=== PATIENT | female | born 1970 | race Caucasian/White ===

== ENCOUNTER 2019-01-24 08:30 | Outpatient (RCR) | payer MEDICAID, SELFPAY | END 2019-01-24 08:35 | disposition home or self-care (01) | LOC: PT 08:30 | PROVIDERS: Referring Provider Nurse Practitioner Family; Visit Provider Nurse Practitioner Family | DX: T25.221A Burn of second degree of right foot, initial encounter (principal); T25.222A Burn of second degree of left foot, initial encounter | CPT/HCPCS: 29580; 97163; 97164; 97597; 97598 ==

== ENCOUNTER 2020-01-01 10:00 | Outpatient (RCR) | payer MEDICAID, SELFPAY | END 2020-01-22 08:11 | disposition home or self-care (01) | LOC: PT.CARL 10:00 | PROVIDERS: Visit Provider Orthopaedic Surgery | DX: Z89.511 Acquired absence of right leg below knee (principal) | CPT/HCPCS: 97110; 97112; 97116; 97163; 97164 ==

== ENCOUNTER → 2021-01-13 10:13 | Outpatient (CLI) | payer MEDICAID, SELFPAY ==
--- NOTE | 2021-01-13 | ECG_ITS ---
APPROVED REPORT Exam: Resting ECG HR:84 bpm ECG Measurements Heart Rate 84 AXES ID 158 P 32 QRSd 122 QRS -72 QT 402 T 67 QTc 475 Conclusion Sinus rhythm with occasional premature ventricular complexes Left anterior fascicular block Late R wave progression Abnormal ECG Electronically signed by : Nitin Fernández MD 01/16/2021 11:41:29
[2021-01-13 10:54] LABS: Basophils # 0.1 K/mm3 (0-0.2); Basophils % 0.9 % (0.1-2.0); Eosinophils # 0.1 K/mm3 (0.0-0.4); Eosinophils % 1.1 % (0.1-12.0); Hematocrit 40.9 % (37.0-47.0); Hemoglobin 13.8 g/dL (12.2-16.2); Lymphocytes # 2.9 K/mm3 (0.7-4.5); Lymphocytes % 33.7 % (10-50); Mean Corpuscular HGB Conc 33.8 g/dL (31.8-35.4); Mean Corpuscular Hemoglobin 28.3 pg (27.0-31.2); Mean Corpuscular Volume 83.7 fl (81-99); Mean Platelet Volume 8.5 fl (7.4-10.4); Monocytes # 0.4 K/mm3 (0.1-1.0); Neutrophils # 5.1 K/mm3 (1.8-7.8); Neutrophils % 59.3 % (37.0-80.0); Platelet Count 167 K/mm3 (142-424); Red Blood Count 4.89 M/mm3 (4.20-5.40); Red Cell Distribution Width 15.1 % (11.5-17.5); White Blood Count 8.7 K/mm3 (4.8-10.8)
== END ==
PROVIDERS: Visit Provider Otolaryngology
DX: Z01.818 Encounter for other preprocedural examination (principal); Z11.52 Encounter for screening for COVID-19; H60.8X2 Other otitis externa, left ear
CPT/HCPCS: 36415; 85025; 93005; U0003

== ENCOUNTER 2021-01-15 08:10 | Day surgery (SDC) | payer MEDICAID, SELFPAY ==
[2021-01-12 17:15] VITALS: BMI 49.1
[2021-01-15] VITALS (13 sets, daily range): BP systolic 129–187; BP diastolic 74–100; PULSE 74–95; RESP 15–18; TEMP 36.1–36.6; O2SAT 94–97
--- NOTE | 2021-01-15 08:46 | P.PN_ITS ---
[facility] Anesthesia Checklist - Patient Identification Patient Identification: Arm Band - Structural Data Admitted From: Home Planned Operative Procedure/s: Debridement with Ear tube Consent for Planned Operative Procedure(s) Verified: Yes - NPO Status Verified Time NPO: 00:00 - Airway Assessment C-Spine Mobility Assessed: Yes TMJ Mobility Assessed: Yes Dentition: Edentulous - Neurological Assessment Level of Consciousness: Awake Hx Seizures: No Numbness or tingling in extremities: No - Anesthesia Plan Anesthesia Risk discussed: Yes Anesthesia Plan: Verified ASA Class: III Anesthesia Type: MAC [facility] History I have reviewed the patient's past medical history: Yes Medical History: Reports:: Depression, Diabetes Mellitus Type 2, Hyperlipidemia, Hypertension Denies:: Cancer, Diabetes Mellitus Type 1, Internal Pacemaker, MRSA *Have you ever received a pneumonia vaccine?: No *Have you received a flu vaccine this season?: Yes Other Medical History: Reports: Sinus Problems Anesthesia experience/problems:: None Other Surgeries: Yes: Cardiac Catheterization, Dilation and Curettage, Hysterectomy-Total, Other. No: Pacemaker Amputation: Yes (right BKA) Fractures: No - *Social History Last grade of school completed: High school graduate Smoking Status: Never smoker Alcohol Intake: never Substance Use Type: denies use *Occupational Status:: unemployed, disabled Housing: house Household Members: none *Travel in the last 8 weeks: None - Psychiatric History Pschychiatric History:: Reports:: Depression Family Hx:: Hypertension
[2021-01-15 09:01] LABS: POC Glucose,Bedside 319 (70-110)
[2021-01-15 09:45] LABS: POC Glucose,Bedside 276 (70-110)
--- NOTE | 2021-01-15 10:31 | P.PN_ITS ---
[facility] Anesthesia Record Part I Intake, IV Amount: 300 Estimated blood loss (mL): 0 Urine output (mL): 0 Blood Pressure: 129/75 SaO2: 95 Pulse Rate: 88 Respiratory Rate: 16 Temperature: 97.5 F Patient is:: Drowsy, Stable Stable to PACU at:: 10:30
[2021-01-15 10:41] LABS: POC Glucose,Bedside 250 (70-110)
--- NOTE | 2021-01-15 10:50 | HMH.OPNOTE ---
Date of procedure: 01/15/21 Pre-op Diagnosis:: 1. Left external otitis with impacted debris in the left ear 2. Left serous otitis media Post-op Diagnosis:: same Procedure performed:: 1. Microdebridement of the left ear 2. Placement of left ear tube, left myringotomy and placement of tube Surgeon:: Ronaldo Reyes MD PRISON OFFICER:: Joseph Herr Anesthesia: GETA Estimated blood loss (mL): 0 Operative findings:: same Operative note:: With the patient under general anesthesia the left ear was prepped and draped. The left ear canal was full of debris and using microdebrider Cesar techniques and the operating microscope all of the debris was cleared. As well there was an impacted tube in the left ear and that was removed. The ear was thoroughly irrigated and then an incision was made in the anterior-inferior quadrant and a fresh Triune T-tube was placed. Serous fluid was aspirated from the left middle ear. Ciprodex drops were applied and the patient was sent to recovery in good general condition. Condition: stable Disposition: PACU Complications:: none
--- NOTE | 2021-01-15 11:52 | SUR.PHASEI ---
1035 FSBS 250. RFeeback, STOCKROOM CLERK aware. Pt to start own insulin back once at home. Post OP and pt notified.
--- NOTE | 2021-01-15 11:53 | SUR.PHASEI ---
1100: Pt reports headache and ear throbbing. BP elevated. Juliana Herr CRNA notified. Labetalol 10mg q5 min ordered by JOHN Bedolla. SBP below 170 and DBP below 100 per JOHN Bedolla. Pt was given Dilaudid 0.5mg at 1108am. After dilaudid, patient verbalized decreased pain in head and ear. BP stabilized as well. SBP 160s and DBP 70-80. Pt to Post OP.
--- NOTE | 2021-01-15 14:00 | P.PN_ITS ---
[facility] Anesthesia Record Part II Discharge Time: 11:22 Destination: Surgical Day Care (OP Surgery) PACU nurse assessment reviewed?: Yes Patient Condition:: Good Anesthesia Complications:: None Swallowing reflex intact?: Yes Cyanosis?: No Blood Pressure: 160/77 Pulse Rate: 88 Temperature: 97.3 F Mental Status: Alert & Oriented Pain level:: 6 Nausea and/or vomitting:: None Intake, IV Amount: 0
== END 2021-01-15 11:54 | disposition home or self-care (01) ==
LOC: OR 08:16
PROVIDERS: PCP Internal Medicine; Visit Provider Otolaryngology
PROC: (CPT 69436; principal; 2021-01-15 09:30)
DX: H83.02 Labyrinthitis, left ear (principal); H65.92 Unspecified nonsuppurative otitis media, left ear; E11.9 Type 2 diabetes mellitus without complications; E78.5 Hyperlipidemia, unspecified; I10 Essential (primary) hypertension; F32.9 Major depressive disorder, single episode, unspecified; Z82.49 Family history of ischemic heart disease and other diseases of the circulatory system; Z79.4 Long term (current) use of insulin; Z79.899 Other long term (current) drug therapy
CPT/HCPCS: 69436; 82962; J2405

== ENCOUNTER 2021-02-23 22:47 | Emergency (ER) | payer MEDICAID, SELFPAY ==
[2021-02-23 22:48] VITALS: BP 141/71; PULSE 98; RESP 18; TEMP 37.3; O2SAT 97; BMI 50.4
--- NOTE | 2021-02-23 23:49 | ECG_ITS ---
APPROVED REPORT Exam: Resting ECG HR:97 bpm ECG Measurements Heart Rate 97 AXES [place] 166 P 49 QRSd 120 QRS -70 QT 400 T 73 QTc 508 Conclusion Normal sinus rhythm Left anterior fascicular block Abnormal ECG Electronically signed by : Nitin Fernández MD 02/25/2021 07:29:33
--- NOTE | 2021-02-24 00:10 | XR_ITS ---
PROCEDURE INFORMATION: Exam: XR Chest Exam date and time: 02/24/2021 12:10 AM Age: 50 years old Clinical indication: Cough TECHNIQUE: Imaging protocol: XR of the chest. Views: 2 views. COMPARISON: No relevant prior studies available. FINDINGS: Lungs: Subtle interstitial haziness could reflect interstitial pneumonia. No consolidation. Pleural spaces: Unremarkable. No pleural effusion. No pneumothorax. Heart/Mediastinum: cardiomegaly. Bones/joints: Unremarkable. IMPRESSION: Subtle interstitial haziness could reflect interstitial pneumonia.
[2021-02-24 00:18] LABS: Influenza A, PCR Not Detected (NotDetected); Influenza B, PCR Not Detected (NotDetected)
[2021-02-24 00:22] LABS: Chloride 100 mmol/L (98-107); Potassium 4.4 mmoL/L (3.5-5.1); Sodium 137 mmol/L (136-145)
[2021-02-24 00:25] LABS: Alanine Aminotransferase 54 U/L (12-78); Albumin Level 3.9 g/dl (3.5-5.0); Alkaline Phosphatase 121 U/L (38-126); Anion Gap 12.4 mEq/L (5-15); Aspartate Amino Transferase 62 U/L (14-36); Bilirubin,Direct 0.1 mg/dl (0.0-0.4); Bilirubin,Indirect 0.4 mg/dL (0.0-0.9); Bilirubin,Total 0.5 mg/dl (0.2-1.3); Bilirubin,Unconjugated 0.4 mg/dL (0.0-1.1); Blood Urea Nitrogen 21 mg/dl (7-17); Carbon Dioxide 29 mmol/L (22.0-30.0); Creatinine Clearance Estimated 81 mL/min (50-200); Estimated Glomerular Filt Rate 88 ml/min (>60); GFR (African American) 106 ML/MIN (>60); Glucose 396 mg/dl (74-100); Total Protein,Serum 7.1 g/dl (6.3-8.2)
[2021-02-24 00:31] LABS: C-Reactive Protein 24.2 mg/L (0-4); Lactic Acid 2.1 mmol/L (0.7-2.1)
[2021-02-24 00:32] LABS: Basophils % 0.6 % (0.1-2.0); Eosinophils # 0.1 K/mm3 (0.0-0.4); Eosinophils % 1.1 % (0.1-12.0); Hematocrit 40.5 % (37.0-47.0); Hemoglobin 13.2 g/dL (12.2-16.2); Lymphocytes # 1.4 K/mm3 (0.7-4.5); Lymphocytes % 23.1 % (10-50); Mean Corpuscular HGB Conc 32.7 g/dL (31.8-35.4); Mean Corpuscular Volume 88.8 fl (81-99); Mean Platelet Volume 8.1 fl (7.4-10.4); Monocytes # 0.4 K/mm3 (0.1-1.0); Monocytes % 5.9 % (1.7-9.3); Neutrophils # 4.1 K/mm3 (1.8-7.8); Neutrophils % 69.4 % (37.0-80.0); Platelet Count 179 K/mm3 (142-424); Red Blood Count 4.55 M/mm3 (4.20-5.40); Red Cell Distribution Width 14.6 % (11.5-17.5); White Blood Count 5.9 K/mm3 (4.8-10.8)
[2021-02-24 00:37] LABS: NT Pro Brain Natriuretic Pep. 370 pg/mL (0-125)
[2021-02-24 00:39] LABS: Coronavirus 19, PCR Detected (NotDetected)
[2021-02-24 00:40] LABS: Troponin I < 0.01 ng/ml (0.00-0.034)
[2021-02-24 00:44] LABS: Procalcitonin 0.092 ng/mL (0.0-2.0)
[2021-02-24 01:21] LABS: Erythrocyte Sedimentation Rate 56 mm/hr (0-30)
--- NOTE | 2021-02-24 01:47 | CT_ITS ---
PROCEDURE INFORMATION: Exam: CTA Chest With Contrast Exam date and time: 02/24/2021 1:47 AM Age: 50 years old Clinical indication: Cough and shortness of breath; Additional info: Cough covid + TECHNIQUE: Imaging protocol: Computed tomographic angiography of the chest with contrast. 3D rendering (Not supervised by radiologist): MIP and/or 3D reconstructed images were created by the technologist. Radiation optimization: All CT scans at this facility use at least one of these dose optimization techniques: automated exposure control; mA and/or kV adjustment per patient size (includes targeted exams where dose is matched to clinical indication); or iterative reconstruction. Contrast material: ISOVUE 370; Contrast volume: 70 ml; Contrast route: INTRAVENOUS (IV); COMPARISON: CR XR CHEST 2V 02/24/2021 12:09 AM FINDINGS: Pulmonary arteries: No central, lobar, or segmental pulmonary embolus. There is mild artifactual heterogeneity of the subsegmental pulmonary arteries, without convincing filling defect. Aorta: Mild ectasia of the ascending thoracic aorta, measuring 3.6 cm in caliber. Other arteries: Incidental 0.8 cm splenic artery aneurysm. Lungs: Calcified granuloma in the left lower lobe. Mild dependent atelectasis. There is also subtle ground-glass attenuation in the bilateral perihilar regions, potentially atelectasis or atypical infection. No airspace consolidation. Pleural spaces: Unremarkable. No pneumothorax. No pleural effusion. Heart: Mild cardiomegaly. No pericardial effusion. Lymph nodes: Nonspecific right paratracheal/paraesophageal lymph nodes measuring up to 0.8 cm in short axis, probably reactive. Calcified subcarinal lymph nodes compatible with old granulomas disease. Liver: Liver is not fully visualized, but measures at least 17 cm in craniocaudal dimension, enlarged. Heterogeneous attenuation of the liver suggesting scattered geographic areas of steatosis. Spleen: There are a few calcified granulomas within the spleen. Bones/joints: Spondylosis. There is [id number] spinal canal stenosis at T11-T12 due disc bulging and left greater than right facet osteoarthropathy. There is advanced left neural foraminal stenosis at T11-T12. Less pronounced degenerative changes at other levels. Soft tissues: Unremarkable. IMPRESSION: 1. No evidence of pulmonary embolus. 2. Subtle bilateral perihilar ground-glass opacities may be due to atelectasis or atypical infection. No airspace consolidation. 3. Mild ectasia of the ascending thoracic aorta. 4. Incidental 0.8 cm splenic artery aneurysm, consider a 1 year follow-up. 5. Hepatomegaly with heterogeneous areas of steatosis.
--- NOTE | 2021-02-24 02:24 | HMH.EDURI ---
ED Disposition Clinical Impression: COVID-19 Disposition: Home, Self-Care Condition on Discharge: Good Instructions: DI for COVID-19 (Suspected or Confirmed ) Additional Instructions: fluids and call pcp for follow up Referrals: Milvia Bruno MD [Primary Care Provider] - - Critical Care Critical Care Time: No Attestation: On 02/23/21, the high probability of a clinically significant, sudden or life threatening deterioration of the following system(s) required my full and direct attention, intervention and personal management. The time I documented below is in addition to time spent performing reported procedures but includes the following listed in this critical care notation. Medical Decision Making - Medical Records Medical records reviewed: Yes: I reviewed the patient's medical records. - Kamaljit Inquiry Pt receiving controlled substance: No Vital Signs: 02/23/21 22:48 Temperature 99.1 F Temperature Source Oral Pulse Rate [Right Radial] 98 H Respiratory Rate 18 Blood Pressure [Right Arm] 141/71 H Blood Pressure Mean [Right Arm] 94 Blood Pressure Source [Right Arm] Automatic Cuff Blood Pressure Position [Right Arm] Sitting 02 Sat by Pulse Oximetry 97 Oxygen Delivery Method Room Air - Lab Data Lab results reviewed: Yes: I reviewed the patient's lab results. Lab Results 02/24/21 00:02: WBC 5.9, RBC 4.55, Hgb 13.2, Hct 40.5, MCV 88.8, MCH 29.0, MCHC 32.7, RDW 14.6, Plt Count 179, MPV 8.1, Neut % (Auto) 69.4, Lymph % (Auto) 23.1, [place] % (Auto) 5.9, Eos % (Auto) 1.1, Baso % (Auto) 0.6, Neut # (Auto) 4.1, Lymph # (Auto) 1.4, [place] # (Auto) 0.4, Eos # (Auto) 0.1, Baso # (Auto) 0.0, ESR 56 H 02/24/21 00:02: Sodium 137, Potassium 4.4, Chloride 100, Carbon Dioxide 29, Anion Gap 12.4, BUN 21 H, Creatinine 0.70, Estimated Creat Clear 81, Estimated GFR 88, Est GFR ( Amer) 106, Glucose 396 H, Calcium 9.0, Total Bilirubin 0.5, Direct Bilirubin 0.1, Conjugated Bilirubin 0.0, Indirect Bilirubin 0.4, Unconjugated Bilirubin 0.4, AST 62 H, ALT 54, Alkaline Phosphatase 121, Troponin I < 0.01, C-Reactive Protein 24.2 H, NT-Pro-B Natriuret Pep 370 H, Total Protein 7.1, Albumin 3.9, Procalcitonin 0.092 02/24/21 00:02: SARS-CoV-2 (PCR) Detected A, Influenza A Untype (PCR) Not detected, Influenza Type B (PCR) Not detected 02/24/21 00:02: Lactate 2.1 Result diagrams: 02/24/21 00:02 02/24/21 00:02 Orders (Tests/Meds): ED MEDICATIONS Generic Name Dose Route Start Last Admin Trade Name Freq PRN Reason Stop Dose Admin Sodium Chloride 1,000 mls @ 999 mls/hr 02/24/21 00:45 02/24/21 00:48 Sod Chlor 0.9% 1000ml Bag IV 02/24/21 01:45 999 mls/hr .Q1H1M JIMI Administration Discontinued Medications Generic Name Dose Route Start Last Admin Trade Name Freq PRN Reason Stop Dose Admin Dexamethasone Sodium Phosphate 10 mg 02/24/21 00:44 02/24/21 00:48 Dexamethasone 4mg/Ml 5ml Mdv IV 02/24/21 00:45 10 mg ONCE ONE Administration Iopamidol 70 ml 02/24/21 02:16 02/24/21 02:17 Iopamidol-370 (76%);100ml Bottle IV 02/24/21 02:17 70 ml ONCE ONE Administration Sodium Chloride 50 ml 02/24/21 02:16 02/24/21 02:17 0.9 % Sodium Chloride 50 Ml Vial IV 02/24/21 02:17 50 ml ONCE ONE Administration Sodium Chloride 10 ml 02/24/21 02:16 02/24/21 02:17 Sodium Chloride 0.9% 10ml Syr (Rad Only) IV 02/24/21 02:17 10 ml ONCE ONE Administration ORDERS Category Date Time Status Troponin I Q3H Lab 02/24/21 03:20 Received Troponin I Q3H Lab 02/24/21 06:15 Ordered Blood Culture Stat Micro 02/24/21 00:02 Received - Radiology Data #1 Image(s): Chest Image Reviewed: Yes I have reviewed radiologist's interpretation Preliminary Findings: Abnormal - CT Data CT Scan: Chest Time Received: 02:[address] Reviewed: Yes: I have viewed the radiologist's interpretation Preliminary Findings: Normal/NAD - ECG Data Tracing #1 Normal Sinus Rhythm: Yes Ischemic changes:
[2021-02-24 04:09] LABS: Troponin I < 0.01 ng/ml (0.00-0.034)
[2021-02-24 04:16] LABS: Reflex Lactic Add Lactic Reflex
[2021-02-24 04:25] VITALS: BP 146/86; PULSE 96; RESP 20; TEMP 36.6; O2SAT 95
== END 2021-02-24 04:25 | disposition home or self-care (01) ==
PROVIDERS: Emergency Provider Emergency Medicine; PCP Internal Medicine
DX: U07.1 COVID-19 (principal); I10 Essential (primary) hypertension; E78.5 Hyperlipidemia, unspecified
CPT/HCPCS: 71046; 71275; 80048; 80076; 83605; 83880; 84145; 84484; 85025; 85651; 86140; 87040; 93005; 96365; 96375; 99284; C9803; Q9967; U0003; U0005

== ENCOUNTER 2021-02-24 14:13 | Outpatient (CLI) | payer MEDICAID, SELFPAY ==
[2021-02-24] VITALS (9 sets, daily range): BP systolic 120–145; BP diastolic 67–78; PULSE 88–99; RESP 16–18; TEMP 36.4–36.6; O2SAT 94–98
== END 2021-02-24 15:00 | disposition home or self-care (01) ==
LOC: COVID.OUT 14:13
PROVIDERS: PCP Emergency Medicine; Visit Provider Emergency Medicine
DX: U07.1 COVID-19 (principal)
CPT/HCPCS: 96365

== ENCOUNTER 2023-10-14 10:07 | Outpatient (CLI) | payer MEDICARE, MEDICAID, SELFPAY ==
--- NOTE | 2023-10-14 10:13 | XR_ITS ---
FINAL REPORT CLINICAL HISTORY: L knee pain COMPARISON: None FINDINGS: LEFT KNEE: 3 images of the left knee were obtained. There is no evidence of fracture or dislocation. Mild degenerative change is present. There is no soft tissue abnormality identified. IMPRESSION: No acute bony abnormality. Mild degenerative change. Reviewed, Interpreted and Dictated by Adriana Bajwa MD Transcribed by Mahsa aLura Authenticated and [facility]
[2023-10-14 18:34] LABS: Basophils # 0.1 K/mm3 (0-0.2); Basophils % 0.8 % (0.1-2.0); Eosinophils # 0.1 K/mm3 (0.0-0.4); Eosinophils % 1.1 % (0.1-12.0); Hematocrit 33.8 % (37.0-47.0); Hemoglobin 11.1 g/dL (12.2-16.2); Lymphocytes # 2.5 K/mm3 (0.7-4.5); Mean Corpuscular HGB Conc 32.7 g/dL (31.8-35.4); Mean Corpuscular Hemoglobin 29.1 pg (27.0-31.2); Mean Corpuscular Volume 88.8 fl (81-99); Mean Platelet Volume 10.2 fl (7.4-10.4); Monocytes # 0.4 K/mm3 (0.1-1.0); Monocytes % 7.1 % (1.7-9.3); Neutrophils # 2.9 K/mm3 (1.8-7.8); Platelet Count 233 K/mm3 (142-424); Red Blood Count 3.81 M/mm3 (4.20-5.40); Red Cell Distribution Width 16.5 % (11.5-17.5); White Blood Count 5.9 K/mm3 (4.8-10.8)
[2023-10-14 18:53] LABS: Alanine Aminotransferase 28 U/L (12-78); Albumin Level 4.1 g/dl (3.5-5.0); Albumin/Globulin Ratio 1.5 (1.1-1.8); Alkaline Phosphatase 96 U/L (38-126); Anion Gap 10.5 mEq/L (5-15); Aspartate Amino Transferase 30 U/L (14-36); Bilirubin,Total 0.5 mg/dl (0.2-1.3); Blood Urea Nitrogen 39 mg/dl (7-17); Calcium 9.9 mg/dl (8.4-10.2); Carbon Dioxide 32 mmol/L (22.0-30.0); Chloride 105 mmol/L (98-107); Estimated Glomerular Filt Rate 58 ml/min (>60); GFR (African American) 70 ML/MIN (>60); Globulin 2.7 g/dL (1.3-3.2); Glucose 54 mg/dl (74-100); Potassium 4.5 mmoL/L (3.5-5.1); Sodium 143 mmol/L (136-145); Total Protein,Serum 6.8 g/dl (6.3-8.2)
[2023-10-14 19:04] LABS: Hemoglobin A1C 8.2 % (4.0-6.0)
== END 2023-10-14 23:59 | disposition home or self-care (01) ==
LOC: LAB.DROPOF 10:09
PROVIDERS: PCP Internal Medicine; Visit Provider Student in an Organized Health Care Education/Training Program
DX: M25.562 Pain in left knee (principal); E11.9 Type 2 diabetes mellitus without complications; Z79.4 Long term (current) use of insulin
CPT/HCPCS: 73562; 80053; 83036; 85025

== ENCOUNTER 2024-08-29 13:30 | Outpatient (CLI) | payer MEDICARE, MEDICAID, SELFPAY ==
[2024-08-29 15:37] LABS: Coronavirus 19, PCR Not Detected (NotDetected); Human Rhinovirus Not Detected (NotDetected); Influenza A, PCR Not Detected (NotDetected); Influenza B, PCR Not Detected (NotDetected); Respiratory Syncytial Virus Not Detected (NotDetected)
== END 2024-08-29 23:59 | disposition home or self-care (01) ==
LOC: LAB.DROPOF 08-30 11:01
PROVIDERS: PCP Nurse Practitioner; Visit Provider Nurse Practitioner
DX: B34.9 Viral infection, unspecified (principal); R05.9 Cough, unspecified; R51.9 Headache, unspecified; R06.7 Sneezing; J34.89 Other specified disorders of nose and nasal sinuses
CPT/HCPCS: 87631